=== PATIENT | female | born 1980 | race Hispanic/Latino ===

== ENCOUNTER 2016-09-07 14:24 | Emergency (ER) | payer BC ==
[2016-09-07 14:48] VITALS: TEMP 98.7
[2016-09-07] MEDS ORDERED: SODIUM CHLORIDE 0.9% 1000ML 1,000 ML IVS ONE (14:58)
--- NOTE | 2016-09-07 15:16 | ED.PDOC ---
History of Present Illness - General Chief Complaint: FOLLOW UP REP Problem Stated Complaint: LLQ pain, vag bleeding with Time Seen by Provider: 09/07/16 14:34 Source: patient, family Exam Limitations: language barrier - History of Present Illness Initial Comments: Patient presents with RLQ pain for 7 hours. Her LMP was 6 weeks ago. She has also had vaginal bleeding and has been through two panty liners. She is a who had an ectopic 4 years ago that required surgical removal. Her says that she was told she would have had she not come to the hospital. The patient denies any other symptoms. No N/V/D. Last intercourse was 4 days ago. Timing/Duration: other - 7 hours Severity: mild Improving Factors: nothing Worsening Factors: nothing Associated Symptoms: denies symptoms Allergies/Adverse Reactions: Allergies Penicillins Allergy (Mild, Verified 09/07/16 14:48) Home Medications: Ambulatory Orders Vit W/ Ferrous Fumara [] 1 tab PO DAILY 09/07/16 Review of Systems - Review of Systems Constitutional: States: no symptoms reported EENTM: States: no symptoms reported Respiratory: States: no symptoms reported Cardiology: States: no symptoms reported Gastrointestinal/Abdominal: States: see HPI Genitourinary: States: see HPI Musculoskeletal: States: no symptoms reported Skin: States: no symptoms reported Neurological: States: no symptoms reported Endocrine: States: no symptoms reported Hematologic/Lymphatic: States: no symptoms reported Past Medical History (General) - Patient Medical History Hx Congestive Heart Failure: No Hx Diabetes: Yes - Gestational Hx Renal Disease: No Surgical History: other - Vaccination History Hx Influenza Vaccination: Yes - Social History Hx Tobacco Use: No Hx Alcohol Use: No Hx Substance Use: No Hx Substance Use Treatment: No Hx Depression: No - Activities of Daily Living Hospice Agency (if applicable):: None - Female History Patient is a Female of Child Bearing Age (10 -59 yrs old): Yes Hx Last Menstrual Period: 10/14/12 Patient : Yes Expected Date of Delivery:: 08/01/13 Hx Gestational Age: 8 Family Medical History - Family History Mother Family History: Unknown Physical Exam - Physical Exam General Appearance: Alert Respiratory: lungs clear Cardiovascular/Chest: normal peripheral pulses, regular rate, rhythm Gastrointestinal/Abdominal: normal bowel sounds, non tender, soft Back Exam: no CVA tenderness Skin Exam: normal color Progress - Progress Progress: 09/07/16 15:[address] Jacinto regarding this patient. Since we have no ultrasound available today, we agreed to send her by EMS to [facility] because he was able to assemble a surgical crew there. Labs were drawn here. Serum HCG positive. One liter NS bolus started. Type and screen. Patient transferred to [facility]. Departure - Departure Clinical Impression: Vaginal bleeding, abnormal, Abdominal pain affecting Disposition: Transfer to Hospital Condition: Good Departure Forms: ED Discharge - Pt. Copy, Patient Portal Self Enrollment Diet: other - NPO Activity: other Referrals: Jimi Jacinto MD [Primary Care Provider] - 1-2 Weeks Home Medications: Ambulatory Orders Vit W/ Ferrous Fumara [] 1 tab PO DAILY 09/07/16
[2016-09-07 15:54] VITALS: BP 125/84; O2SAT 99
== END 2016-09-07 15:35 | disposition short-term general hospital (02) ==
LOC: ER 14:24
DX: O20.9 Hemorrhage in early pregnancy, unspecified (principal); Z3A.08 8 weeks gestation of pregnancy; Z86.32 Personal history of gestational diabetes; Z88.0 Allergy status to penicillin